=== PATIENT | female | born 1955 | race Caucasian/White ===

== ENCOUNTER 2020-01-15 19:12 | Inpatient (IN) | payer MEDICARE, SELFPAY ==
[2020-01-15 19:59] LABS: #Basophils 0.1 thou/uL (0.0-0.2); #Eosinphils 0.2 thou/uL (0.0-0.7); #Monocytes 0.4 thou/uL (0.11-0.59); #Neutrophils 4.7 thou/uL (1.40-6.50); %Basophils 0.7 % (0.0-1.0); %Lymphocytes 27.2 % (21.0-51.0); %Monocytes 5.4 % (0.0-10.0); %Neutrophils 63.7 % (42.0-75.0); Hemoglobin 12.7 g/dL (12.0-16.0); Mean Corpuscular HGB CONC 32.2 g/dL (32.0-36.0); Mean Corpuscular Hemoglobin 29.7 pg (27.0-31.0); Mean Corpuscular Volume 92.5 fL (78.0-98.0); Mean Platelet Volume 11.2 fL (7.4-10.4); Platelet Count 161 thou/uL (130-400); Red Blood Cell (RBC) Count 4.26 mill/uL (4.20-5.40); White Blood Cell (WBC) Count 7.4 thou/uL (4.8-10.8)
[2020-01-15] MEDS ORDERED: Nitroglycerin 0.4 MG TAB 1 EACH ONE (20:05)
[2020-01-15 20:23] LABS: ALT (SGPT) 27 U/L (8-55); AST (SGOT) 48 U/L (5-34); Albumin 3.8 g/dL (3.4-4.8); Alkaline Phosphatase 109 U/L (40-110); Anion Gap 15 mmol/L (10-20); BUN (Urea Nitrogen) 15 mg/dL (9.8-20.1); Bilirubin, Total 0.5 mg/dL (0.2-1.2); CK (CPK) 45 U/L (29-168); Calc. Creatinine Clearance 0 mL/min (70-130); Calcium 8.9 mg/dL (7.8-10.44); Carbon Dioxide 24 mmol/L (23-31); Chloride 104 mmol/L (98-107); Estimated GFR-MDRD 51; Globulin 4.2 g/dL (2.4-3.5); Glucose 103 mg/dL (80-115); Potassium 4.3 mmol/L (3.5-5.1); Sodium 139 mmol/L (136-145)
--- NOTE | 2020-01-15 20:24 | RAD ---
PORTABLE CHEST: 01/15/20 HISTORY: Chest pain. The lungs are clear. No infiltrate or vascular congestion. Heart size within normal range. IMPRESSION: No acute abnormality. POS: AGW
[2020-01-15] MEDS ORDERED: Senokot S 8.6-50 MG TAB PO PRN (22:21)
[2020-01-15] MEDS ORDERED: HYDROcodone/Acetaminophen 5/325 mg Tablet PO PRN (22:21)
[2020-01-15] MEDS ORDERED: Ondansetron ODT 4 MG TAB PO PRN (22:21)
[2020-01-15] MEDS ORDERED: Calcium Carbonate 500 MG ChewTAB PO PRN (22:21)
[2020-01-15 23:23] LABS: Troponin I 0.037 ng/mL (< 0.028)
--- NOTE | 2020-01-15 23:23 | HP ---
PRIMARY CARE PHYSICIAN: Velma Fields. CHIEF COMPLAINT: Chest pain. HISTORY OF PRESENT ILLNESS: The patient is a 64-year-old female with a past medical history significant for hypertension, asthma, and obesity, who presents to the ER for the above complaint. The patient reports that she has had chest pain for years. She reports that it is ongoing, it is constant; however, over the past couple of days, it has increased in intensity, so much though that she has been lying in bed, reluctant to exert herself because her chest pain worsens. This afternoon, while lying in bed, her chest pain became so severe that she went into the shower, hoping that would help relieve her pain, however, she became short of breath and diaphoretic. She describes her chest pain as located midsternally and does not radiate. She has some associated heart palpitations at times. She describes it as pressure increasing in intensity, exacerbated with exertion and relieved by nothing. For this reason, the patient called EMS. Denies any cough, fever, abdominal pain or diarrhea. In the ER, the patient's EKG, normal sinus rhythm 77 beats per minute with some T-wave flattening. Troponin was 0.026. BNP 15.3, CK 45, D-dimer 0.39. Chest x-ray was negative for any acute process. CMP and CBC were unremarkable. The patient was given full-dose aspirin and sublingual nitroglycerin. The patient reports improvement in symptoms; however, the chest pain still exists. PAST MEDICAL HISTORY: 1. Hypertension. 2. Asthma. 3. Fibromyalgia. 4. Arthritis. 5. Depression. 6. Migraines. PAST SURGICAL HISTORY: 1. Gallbladder. 2. Hernia. 3. Hysterectomy. 4. Eye surgery. SOCIAL HISTORY: The patient lives with her at home. She has no history of smoking, illicit drug use, or alcohol intake. She does not work. FAMILY HISTORY: Significant for cardiac disease. Her sister of an PA this month, contributory for pulmonary disease. ALLERGIES: TOPIRAMATE. HOME MEDICATIONS: 1. Hydrochlorothiazide 25 mg p.o. q.a.m. 2. Lamictal 100 mg p.o. b.i.d. 3. Cymbalta 60 mg p.o. q.a.m. 4. Lyrica 100 mg p.o. q.8 hours. 5. Celebrex 200 mg p.o. q.a.m. REVIEW OF SYSTEMS: All review of systems are negative unless otherwise stated in the HPI. PHYSICAL EXAMINATION: VITAL SIGNS: Blood pressure 120/82, pulse 79, respirations 22, 95% on room air, temperature 98.9. CONSTITUTIONAL: The patient is alert and oriented to person, place, and time. Appears comfortable, lying in bed, no acute distress. Nontoxic in appearance with stable vital signs. HEAD: Atraumatic and normocephalic. EYES: PERRLA. Extraocular muscles intact. ENT: Nares patent bilaterally. Oropharynx is clear. Uvula midline. Moist mucous membranes. No oral lesions. NECK: Full range of motion. No cervical spinous tenderness. No JVD. No cervical adenopathy. RESPIRATORY/CHEST: Respirations even, nonlabored. Clear to auscultation. No rhonchi, wheezes, or rales. CARDIOVASCULAR: S1 and S2 appreciated. Regular rate and rhythm. No murmurs, rubs, or gallops. ABDOMEN: Soft, nontender, nondistended. Active bowel sounds. No guarding. No rigidity. No rebound. Negative Rovsing sign. Negative Robertson sign. No abdominal bruit auscultated. BACK: Full range of motion. No central spinous tenderness. No CVA tenderness. EXTREMITIES: Upper extremities, full range of motion. Strength normal. Sensation intact. Palpable radial pulses. Bilateral lower extremities, full range of motion. Strength intact. Sensation intact. Palpable pedal pulses, no swelling. NEUROVASCULAR: The patient is alert and oriented to person, place, and time. Moves all extremities well. No focal motor deficits. Stable gait. PSYCHIATRIC: Normal affect. A and O x3. LABS AND DIAGNOSTICS: EKG normal sinus rhythm 77 beats per minute. Chest x-ray negative for any acute process. Troponin 0.026. BNP 15.3, CK 45. D-dimer 0.39. Sodium 139, potassium 4.3, chloride 104, carbon dioxide 24, BUN 15, creatinine 1.09, glucose 103, calcium 8.9, total bilirubin 0.5, AST 48, ALT is 27, alkaline phosphatase 109. WBC 7.4, hemoglobin 12.7, hematocrit 39.4, platelets 161. D- dimer 0.39. IMPRESSION AND PLAN: 1. Unstable angina. We will admit the patient to the telemetry floor observation status. Expected length of stay less than two midnights. The patient presents for worsening chest pain over the past several years. The patient has a HEART score of 5, Wells score of 0. D-dimer was 0.39. The patient was given aspirin, sublingual nitroglycerin with improvement of symptoms, but did not completely resolve her chest pain. We will continue to trend cardiac troponins. We will check a TSH and a fasting lipid and get a UA. We will order an echocardiogram. We will continue aspirin. We will leave the n.p.o. after midnight. Day team to consider cardiac stress test versus Cardiology consult versus outpatient followup. 2. Hypertension. The patient has a history of hypertension, takes hydrochlorothiazide. We will monitor blood pressure through the evening. We will hold hydrochlorothiazide for now. 3. Asthma. Chest x-ray negative for any acute process. The patient has regular respirations. No respiratory distress. We will continue to monitor her respiratory status, asthma is stable at this time. 4. Fibromyalgia. The patient takes Cymbalta and Lyrica. We will restart home medications when reconciled by nursing. 5. Arthritis. The patient takes Celebrex. We will restart home medication when reconciled by nursing. 6. Depression. The patient takes Lyrica and Cymbalta. We will restart home medications when reconciled by nursing. 7. SCDs for deep venous thrombosis prophylaxis. Protonix for gastrointestinal prophylaxis. The patient is a full code. 8. Discussed the case with Dr. Herrera. Job ID: [id number] MTDD
[2020-01-15] MEDS ORDERED: Sodium Chloride 0.9% 1,000 ML IV SCH (23:59)
[2020-01-16] MEDS ORDERED: Magnesium 2 GM/50 ML 2 GM in Premix Bag 1 BAG IVPB SCH (01:00)
[2020-01-16] MEDS ORDERED: Magnesium 2 GM/50 ML BAG (IN WATER) ONE (01:58)
[2020-01-16 02:14] LABS: Troponin I Less than 0.010 ng/mL (< 0.028)
[2020-01-16 06:04] LABS: #Basophils 0.1 thou/uL (0.0-0.2); #Eosinphils 0.2 thou/uL (0.0-0.7); #Lymphocytes 2.4 thou/uL (1.20-3.40); #Monocytes 0.5 thou/uL (0.11-0.59); #Neutrophils 3.5 thou/uL (1.40-6.50); %Basophils 1.2 % (0.0-1.0); %Eosinophils 3.4 % (0.0-10.0); %Lymphocytes 35.6 % (21.0-51.0); %Monocytes 7.1 % (0.0-10.0); %Neutrophils 52.7 % (42.0-75.0); Hemoglobin 12.4 g/dL (12.0-16.0); MDiff Complete? YES; Mean Corpuscular HGB CONC 31.5 g/dL (32.0-36.0); Mean Corpuscular Hemoglobin 29.7 pg (27.0-31.0); Mean Corpuscular Volume 94.3 fL (78.0-98.0); Mean Platelet Volume 10.5 fL (7.4-10.4); Platelet Clumps SLIGHT; Platelet Morphology Comment PLT clumps seen-ADEQ; RBC Distribution Width 13.1 % (11.5-14.5); Red Blood Cell (RBC) Count 4.16 mill/uL (4.20-5.40); White Blood Cell (WBC) Count 6.7 thou/uL (4.8-10.8)
[2020-01-16 06:10] LABS: Anion Gap 12 mmol/L (10-20); BUN (Urea Nitrogen) 17 mg/dL (9.8-20.1); Calc. Creatinine Clearance 0 mL/min (70-130); Calcium 8.7 mg/dL (7.8-10.44); Carbon Dioxide 25 mmol/L (23-31); Cardiac Risk 6.1 (Less than 4.5); Chloride 106 mmol/L (98-107); Cholesterol 208 mg/dl (< 200 Desired); Estimated GFR-MDRD 67; Glucose 97 mg/dL (80-115); HDL Cholesterol 34 mg/dL (>60 Neg Risk); LDL Cholesterol, Calculated 148 mg/dL; Potassium 3.7 mmol/L (3.5-5.1); Sodium 139 mmol/L (136-145); Triglycerides 132 mg/dL (Less than 150)
[2020-01-16] MEDS ORDERED: Pregabalin 50 MG CAP PO SCH (06:15)
[2020-01-16] MEDS ORDERED: Aspirin Chewable 81 MG TAB ONE (08:49)
[2020-01-16] MEDS ORDERED: Aspirin 81 mg Enteric Coated Tablet PO SCH (09:00)
[2020-01-16 13:58] VITALS: BMI 41.3
[2020-01-16 16:15] LABS: Bilirubin Negative (Negative); Blood, Urine Negative (Negative); Clarity Clear (Clear); Glucose, Urine (Dipstick) Normal (Negative); Ketone, Urine Negative (Negative); Leukocyte Negative Leu/uL (Negative); Nitrite Negative (Negative); Protein, Urine (Dipstick) Negative (Neg-Trace); RBC/HPF 0-3 HPF (0-3); Specific Gravity, Urine 1.017 (1.002-1.036); Urobilinogen Normal mg/dL (Less than 2); WBC/HPF 0-3 HPF (0-3)
[2020-01-16 16:16] LABS: Bacteria/HPF 1+ HPF (None Seen)
[2020-01-16] MEDS ORDERED: HYDROcodone/Acetaminophen 10/325 mg Tablet PO PRN (18:23)
[2020-01-16] MEDS ORDERED: Albuterol Sulfate 2.5 mg/3 ml Neb NEB PRN (18:23)
[2020-01-16] MEDS: Pregabalin 50 MG CAP PO SCH (18:36)
[2020-01-16] MEDS: Acetaminophen 325 MG TAB PO PRN (21:43)
[2020-01-16] MEDS: lamoTRIgine 100 MG TAB PO SCH (21:43)
[2020-01-17] MEDS ORDERED: Pregabalin 50 MG CAP PO SCH (00:01)
[2020-01-17] MEDS: DULoxetine 60 MG CAP PO SCH (08:26)
[2020-01-17] MEDS: Pregabalin 50 MG CAP PO SCH ×3 (08:27→19:59)
[2020-01-17] MEDS: Aspirin 325 mg Enteric Coated Tablet PO SCH (08:27)
[2020-01-17] MEDS: CeleCOXIB 100 MG CAP PO SCH (08:27)
[2020-01-17] MEDS: lamoTRIgine 100 MG TAB PO SCH ×2 (08:31→19:59)
[2020-01-17] MEDS ORDERED: Regadenoson 0.4 MG/5 ML SYRINGE ONE (09:39)
--- NOTE | 2020-01-17 12:05 | PDOC.HOSPP ---
- Subjective Encounter Date: 01/16/20 Encounter Time: 16:00 Subjective: Patient seen and examined for CP. Had CP earlier. No new complaints. No overnight events - Objective Vital Signs & Weight: Vital Signs (12 hours) Temp Pulse Resp BP Pulse Ox 01/17/20 07:23 97.5 F L 70 16 121/68 97 01/17/20 04:13 97.3 F L 75 18 120/56 L 97 Weight Weight 296 lb 12.8 oz I&O: 01/16/20 01/17/20 01/18/20 06:59 06:59 06:59 Intake Total 790 Output Total 650 Balance 140 Result Diagrams: 01/16/20 05:19 01/16/20 05:19 Additional Labs: Laboratory Tests 01/16/20 05:19 LDL Cholesterol, Calc 148 Radiology Reviewed by me: Yes (CXR - no infiltrate) EKG Reviewed by me: Yes (SR) Hospitalist ROS - Review of Systems Respiratory: denies: cough, dry, shortness of breath, hemoptysis, SOB with excertion, pleuritic pain, sputum, wheezing, other Cardiovascular: denies: chest pain, palpitations, orthopnea, paroxysmal noc. dyspnea, edema, light headedness, other - Medication Medications: Active Medications Generic Name Dose Route Start Last Admin Trade Name Freq PRN Reason Stop Dose Admin Acetaminophen 650 mg 01/15/20 22:21 01/16/20 21:43 Tylenol PO 650 mg Q4H PRN Administration Headache/Fever/Mild Pain (1-3) Aspirin 325 mg 01/17/20 09:00 01/17/20 08:27 Ecotrin PO 325 mg DAILY ALVARO Administration Celecoxib 200 mg 01/17/20 09:00 01/17/20 08:27 Celebrex PO 200 mg DAILY ALVARO Administration Duloxetine HCl 60 mg 01/17/20 09:00 01/17/20 08:26 Cymbalta PO 60 mg DAILY ALVARO Administration Lamotrigine 100 mg 01/16/20 21:00 01/17/20 08:31 Lamictal PO 100 mg BID ALVARO Administration Pantoprazole Sodium 40 mg 01/16/20 09:00 01/17/20 08:27 Protonix PO 40 mg DAILY ALVARO Administration Pregabalin 100 mg 01/16/20 21:00 01/17/20 08:27 Lyrica PO 100 mg TID ALVARO Administration Sodium Chloride 10 ml 01/16/20 09:00 01/17/20 08:28 Flush - Normal Saline IVF 10 ml Q12HR ALVARO Administration - Exam General Appearance: NAD Heart: RRR, no gallops, no rubs, normal peripheral pulses Respiratory: no wheezes, no rales, no ronchi, normal chest expansion Gastrointestinal: non-tender, non-distended, normal bowel sounds, no palpable masses Extremities: no cyanosis, no clubbing, no edema Neurological: no new deficit Psychiatric: normal affect, A&O x 3 Hosp A/P - Plan DVT proph w/SCDs Chest pain ?Unstable angina HTN Mild int Asthma Fibromyalgia Morbid obesity BMI 41.4 HLD PLAN: Await stress test Cont ASA Resume home meds Will prob consult Cardiology Echo pending Cont other meds as above
--- NOTE | 2020-01-17 12:20 | PDOC.HOSPP ---
- Subjective Encounter Date: 01/17/20 Encounter Time: 08:00 Subjective: Patient seen and examined for CP. No CP. No new complaints. No overnight events - Objective Vital Signs & Weight: Vital Signs (12 hours) Temp Pulse Resp BP Pulse Ox 01/17/20 11:48 97.7 F 85 16 131/71 97 01/17/20 07:23 97.5 F L 70 16 121/68 97 01/17/20 04:13 97.3 F L 75 18 120/56 L 97 Weight Weight 296 lb 12.8 oz I&O: 01/16/20 01/17/20 01/18/20 06:59 06:59 06:59 Intake Total 790 Output Total 650 Balance 140 Result Diagrams: 01/16/20 05:19 01/16/20 05:19 EKG Reviewed by me: Yes (Tele SR) Hospitalist ROS - Review of Systems Respiratory: denies: cough, dry, shortness of breath, hemoptysis, SOB with excertion, pleuritic pain, sputum, wheezing, other Cardiovascular: denies: chest pain, palpitations, orthopnea, paroxysmal noc. dyspnea, edema, light headedness, other Gastrointestinal: denies: nausea, vomiting, abdominal pain, diarrhea, constipation, melena, hematochezia, other - Medication Medications: Active Medications Generic Name Dose Route Start Last Admin Trade Name Freq PRN Reason Stop Dose Admin Acetaminophen 650 mg 01/15/20 22:21 01/16/20 21:43 Tylenol PO 650 mg Q4H PRN Administration Headache/Fever/Mild Pain (1-3) Aspirin 325 mg 01/17/20 09:00 01/17/20 08:27 Ecotrin PO 325 mg DAILY ALVARO Administration Celecoxib 200 mg 01/17/20 09:00 01/17/20 08:27 Celebrex PO 200 mg DAILY ALVARO Administration Duloxetine HCl 60 mg 01/17/20 09:00 01/17/20 08:26 Cymbalta PO 60 mg DAILY ALVARO Administration Lamotrigine 100 mg 01/16/20 21:00 01/17/20 08:31 Lamictal PO 100 mg BID ALVARO Administration Pantoprazole Sodium 40 mg 01/16/20 09:00 01/17/20 08:27 Protonix PO 40 mg DAILY ALVARO Administration Pregabalin 100 mg 01/16/20 21:00 01/17/20 08:27 Lyrica PO 100 mg TID ALVARO Administration Sodium Chloride 10 ml 01/16/20 09:00 01/17/20 08:28 Flush - Normal Saline IVF 10 ml Q12HR ALVARO Administration - Exam General Appearance: NAD Heart: RRR, no gallops Respiratory: no wheezes, no ronchi Gastrointestinal: non-tender, non-distended, normal bowel sounds Extremities: no cyanosis, no clubbing Neurological: no new deficit Hosp A/P - Plan DVT proph w/SCDs Chest pain ?Unstable angina HTN Mild int Asthma Fibromyalgia Morbid obesity BMI 41.4 HLD Chronic diastolic dysfunction PLAN: Stress test today Cont ASA Await Cardiology Echo reviewed Cont other meds as above
--- NOTE | 2020-01-17 15:19 | CON ---
DATE OF CONSULTATION: 01/17/2020 REASON FOR CONSULTATION: Chest pain. HISTORY OF PRESENT ILLNESS: Ms. Link is a very pleasant 64-year-old white female, who comes to the hospital for chest pain. She states she has had chest pain for many many years now. Recently, she has been dealing with a lot more anxiety and stress in her life as she lost her mother in June and has lost three other family members in the last 3 months. She has noticed worsening episodes of chest pain. She describes it as a pain that is in her midsternal area that lasts pretty much the whole day. On my evaluation, she said she is having a good day today and her pain is not there, but she had pain all day yesterday. She has had an evaluation of her heart in the past about 10 years ago. She states she was in the hospital for the same reason, she had a heart catheterization that was normal. She remembers being told she had probably a 30% blockage somewhere. She has continued to have chest pain since. PAST MEDICAL HISTORY: 1. Hypertension. 2. Bronchial asthma. 3. Fibromyalgia. 4. Arthritis. 5. Depression. 6. Migraines. SURGICAL HISTORY: 1. Cholecystectomy. 2. Hernia repair. 3. Hysterectomy. 4. Eye surgeries. SOCIAL HISTORY: Lives with her . She has grand kids and great grand kids. FAMILY HISTORY: Her sister of MS this month. OUTPATIENT MEDICATIONS: 1. Hydrochlorothiazide 25 mg a day. 2. Lamictal. 3. Cymbalta. 4. Lyrica. 5. Celebrex. ALLERGIES: TOPIRAMATE. REVIEW OF SYSTEMS: A 12-point review of systems was done and negative unless stated in history of present illness. PHYSICAL EXAMINATION: VITAL SIGNS: Temperature 97.7, pulse 85, respiratory rate 16, saturations 97% on room air, blood pressure 131/71. GENERAL: Awake, alert, and oriented x3, in no distress. HEENT: Normocephalic and atraumatic. NECK: Supple. LUNGS: Clear. CARDIOVASCULAR: S1 and S2. No S3 or S4. No murmurs. ABDOMEN: Soft. Positive bowel sounds. EXTREMITIES: No edema. SKIN: Warm and dry. LABORATORY DATA: Laboratory work was reviewed. CBC was unremarkable. Coags, D-dimer was normal. Chemistries were unremarkable. Troponin was 0.02, 0.03, 0.01. Triglycerides of 132, cholesterol of 208, LDL of 148, HDL of 34. TSH was normal. UA was unremarkable except for 1+ bacteria. Echocardiogram done yesterday showed an EF of 50% to 55%, grade 1 diastolic dysfunction, mild TR. ASSESSMENT: 1. Chest pain, atypical. 2. Fibromyalgia. 3. Hypertension. PLAN: We would further risk stratify with nuclear stress test. She would have to be a two day. At this time, we will have further recommendations per results of stress testing. If stress test is normal, I will discharge her home on isosorbide mononitrate, just in case this is some sort of coronary spasm. If it is abnormal, she will require heart catheterization, which we will address with her in the next few days. Thank you for letting us to participate in the care of the patient. We will follow. Job ID: [id number]
[2020-01-17] MEDS: Acetaminophen 325 MG TAB PO PRN (19:58)
[2020-01-18] MEDS: CeleCOXIB 100 MG CAP PO SCH (08:04)
[2020-01-18] MEDS: Pregabalin 50 MG CAP PO SCH ×3 (08:04→20:50)
[2020-01-18] MEDS: lamoTRIgine 100 MG TAB PO SCH ×2 (08:04→20:52)
[2020-01-18] MEDS: DULoxetine 60 MG CAP PO SCH (08:04)
[2020-01-18] MEDS: Aspirin 325 mg Enteric Coated Tablet PO SCH (08:05)
--- NOTE | 2020-01-18 11:53 | NM ---
EXAM: CARDIAC SPECT HISTORY: Chest pain, asthma, hypertension TECHNIQUE: A myocardial perfusion scan was performed using the single isotope 2 day protocol with sofya hnetium 99m sestamibi. [30 mCi] was injected intravenously for the rest exam followed by 30 mCi for the stress study. Pharmacologic stress with Lexiscan was monitored and interpreted by Dr. Contreras FINDINGS: A small defect is seen in the distal anterior wall on the stress images with complete rever sibility at rest. Gated SPECT LVEF: 69% Wall motion exam: Normal IMPRESSION: Small area of completely reversible distal anterior wall ischemia
--- NOTE | 2020-01-18 13:46 | PDOC.HOSPP ---
- Subjective Encounter Date: 01/18/20 Encounter Time: 13:45 Subjective: Patient seen and examined for CP/Unstable angina. Intermittent chest tightness. No syncope/palpitations. No other complaints. No overnight events - Objective Vital Signs & Weight: Vital Signs (12 hours) Temp Pulse Resp BP Pulse Ox 01/18/20 11:03 98.0 F 70 12 113/61 97 01/18/20 07:25 97.9 F 67 18 109/56 L 94 L 01/18/20 03:38 98.3 F 71 126/59 L 93 L Weight Admit Weight 296 lb 12.8 oz Weight 299 lb I&O: 01/17/20 01/18/20 01/19/20 06:59 06:59 06:59 Intake Total 790 1370 Output Total 650 Balance 140 1370 Result Diagrams: 01/16/20 05:19 01/16/20 05:19 Radiology Reviewed by me: No (Echo - Diastolic dysfunction) EKG Reviewed by me: Yes (Tele SR) Hospitalist ROS - Review of Systems Respiratory: denies: cough, dry, shortness of breath, hemoptysis, SOB with excertion, pleuritic pain, sputum, wheezing, other Cardiovascular: reports: chest pain. denies: palpitations, orthopnea, paroxysmal noc. dyspnea, edema, light headedness, other Gastrointestinal: denies: nausea, vomiting, abdominal pain, diarrhea, constipation, melena, hematochezia, other - Medication Medications: Active Medications Generic Name Dose Route Start Last Admin Trade Name Freq PRN Reason Stop Dose Admin Acetaminophen 650 mg 01/15/20 22:21 01/17/20 19:58 Tylenol PO 650 mg Q4H PRN Administration Headache/Fever/Mild Pain (1-3) Aspirin 325 mg 01/17/20 09:00 01/18/20 08:05 Ecotrin PO 325 mg DAILY ALVARO Administration Celecoxib 200 mg 01/17/20 09:00 01/18/20 08:04 Celebrex PO 200 mg DAILY ALVARO Administration Duloxetine HCl 60 mg 01/17/20 09:00 01/18/20 08:04 Cymbalta PO 60 mg DAILY ALVARO Administration Lamotrigine 100 mg 01/16/20 21:00 01/18/20 08:04 Lamictal PO 100 mg BID ALVARO Administration Pantoprazole Sodium 40 mg 01/16/20 09:00 01/18/20 08:04 Protonix PO 40 mg DAILY ALVARO Administration Pregabalin 100 mg 01/16/20 21:00 01/18/20 08:04 Lyrica PO 100 mg TID ALVARO Administration Sodium Chloride 10 ml 01/16/20 09:00 01/18/20 08:05 Flush - Normal Saline IVF 10 ml Q12HR ALVARO Administration - Exam General Appearance: NAD Heart: RRR, no gallops, no rubs, normal peripheral pulses Respiratory: no wheezes, no ronchi, normal chest expansion, no tachypnea Gastrointestinal: non-tender, non-distended, normal bowel sounds Extremities: no cyanosis Neurological: no new deficit Psychiatric: normal affect, A&O x 3 Hosp A/P - Plan DVT proph w/lovenox, DVT proph w/SCDs Chest pain/ Unstable angina/?NSTEMI Abnormal stress test HTN Mild int Asthma Fibromyalgia Morbid obesity BMI 41.4 HLD Chronic diastolic dysfunction PLAN: Case d/w Dr Contreras Cont ASA Cont Statins Start Lovenox 100 mg BID Hold beta blockers and ACEI due to relative hypotension Echo reviewed Cont other meds as above Cath on Tuesday per Cardiology
[2020-01-18] MEDS: Acetaminophen 325 MG TAB PO PRN (14:15)
[2020-01-18] MEDS: Nitroglycerin 2% Ointment 1 INCH/1 GM Packet TOP SCH ×2 (14:16→20:54)
--- NOTE | 2020-01-18 14:57 | PDOC.CPN ---
- Subjective Date: 01/18/20 Time: 14:53 Interval history: She had hr stress test and it showed low risk findings with small apical defect. She continues to have episodes of chest pain. - Review of Systems General: denies: fever/chills, weight/appetite/sleep changes, night sweats, fatigue Respiratory: denies: cough, congestion, shortness of breath, exercise intolerance Cardiovascular: reports: chest pain. denies: palpitation, edema, paroxysmal nocturnal dyspnea, orthopnea Gastrointestinal: denies: nausea, vomiting, diarrhea, constipation, abd pain, GI bleeding Musculoskeletal: reports: pain. denies: tenderness, stiffness, swelling, arthritis/arthralgias Neurological: denies: numbness, syncope, seizure, weakness - Objective Allergies/Adverse Reactions: Allergies Allergy/AdvReac Type Severity Reaction Status Date / Time topiramate Allergy Verified 01/16/20 13:54 Visit Medications: Current Medications Acetaminophen (Tylenol) 650 mg PO Q4H PRN PRN Reason: Headache/Fever/Mild Pain (1-3) Last Admin: 01/18/20 14:15 Dose: 650 mg Hydrocodone Bitart/Acetaminophen (Boles 5/325) 1 tab PO Q4H PRN PRN Reason: Moderate Pain (4-6) Hydrocodone Bitart/Acetaminophen (Boles 10/325) 1 tab PO Q6H PRN PRN Reason: Pain 7-10 Albuterol Sulfate (Ventolin) 2.5 mg NEB Q6H PRN PRN Reason: SOB &/or Wheezing Aspirin (Ecotrin) 325 mg PO DAILY [facility] Last Admin: 01/18/20 08:05 Dose: 325 mg Atorvastatin Calcium (Lipitor) 40 mg PO HS [facility] Calcium Carbonate (Tums) 1,000 mg PO Q4H PRN PRN Reason: Heartburn or Indigestion Celecoxib (Celebrex) 200 mg PO DAILY [facility] Last Admin: 01/18/20 08:04 Dose: 200 mg Duloxetine HCl (Cymbalta) 60 mg PO DAILY [facility] Last Admin: 01/18/20 08:04 Dose: 60 mg Enoxaparin Sodium (Lovenox) 100 mg SC 0900,2100 [facility] Lamotrigine (Lamictal) 100 mg PO BID [facility] Last Admin: 01/18/20 08:04 Dose: 100 mg Nitroglycerin (Nitrostat) 0.4 mg PO Q5MIN PRN PRN Reason: Chest Pain Nitroglycerin (Nitro-Bid 2% Ointment) 0.5 inch TOP Q8HR [facility] Last Admin: 01/18/20 14:16 Dose: 0.5 inch Ondansetron HCl (Zofran Odt) 4 mg PO Q6H PRN PRN Reason: Nausea/Vomiting Pantoprazole Sodium (Protonix) 40 mg PO DAILY [facility] Last Admin: 01/18/20 08:04 Dose: 40 mg Pregabalin (Lyrica) 100 mg PO TID [facility] Last Admin: 01/18/20 14:16 Dose: 100 mg Senna/Docusate Sodium (Senokot S) 2 tab PO BID PRN PRN Reason: Constipation Sodium Chloride (Flush - Normal Saline) 10 ml IVF Q12HR [facility] Last Admin: 01/18/20 08:05 Dose: 10 ml Vital Signs & Weight: Vital Signs Temp Pulse Resp BP Pulse Ox 01/18/20 11:03 98.0 F 70 12 113/61 97 01/18/20 07:25 97.9 F 67 18 109/56 L 94 L 01/18/20 03:38 98.3 F 71 126/59 L 93 L Admit Weight 296 lb 12.8 oz Weight 299 lb - Physical Exam General: alert & oriented x3 HEENT: mucus membranes moist Neck: supple neck Cardiac: regular rate and rhythm Lungs: clear to auscultation Neuro: grossly intact Abdomen: active bowel sounds Extremities: no edema Skin: clear Musculoskeletal: no pain - Labs Result Diagrams: 01/16/20 05:19 01/16/20 05:19 Troponin/CKMB Troponin I Less than 0.010 ng/mL (< 0.028) 01/16/20 01:30 - Telemetry Sinus rhythms and dysrhythmias: sinus rhythm - Assessment/Plan Assessment/Plan: 1. NSTEMI 2. Morbid obesity. 3. HTN PLAN: - Start full anticoagulation with lovenox - We spoke about risks and benefits of LHC, risks include but not limited to stroke, [place], bleeding and need for blood transfusion, limp loss, organ loss, renal dysfunction, She understands and verbalizes understanding and agrees to proceed. - Will plan to do Tuesday through radial approach.
[2020-01-18] MEDS: Atorvastatin Calcium 40 MG TAB PO SCH (20:51)
[2020-01-18] MEDS: Enoxaparin Sodium 100 MG/ML SYRINGE SC SCH (20:58)
[2020-01-19] MEDS: Nitroglycerin 2% Ointment 1 INCH/1 GM Packet TOP SCH ×4 (06:42→22:36)
[2020-01-19 08:23] LABS: Anion Gap 11 mmol/L (10-20); BUN (Urea Nitrogen) 10 mg/dL (9.8-20.1); Calc. Creatinine Clearance 134 mL/min (70-130); Calcium 8.5 mg/dL (7.8-10.44); Carbon Dioxide 25 mmol/L (23-31); Chloride 106 mmol/L (98-107); Estimated GFR-MDRD 61; Glucose 102 mg/dL (80-115); Magnesium 1.9 mg/dL (1.6-2.6); Potassium 3.5 mmol/L (3.5-5.1); Sodium 138 mmol/L (136-145)
[2020-01-19 08:59] LABS: #Eosinphils 0.3 thou/uL (0.0-0.7); #Lymphocytes 2.3 thou/uL (1.20-3.40); #Monocytes 0.3 thou/uL (0.11-0.59); #Neutrophils 3.3 thou/uL (1.40-6.50); %Basophils 0.5 % (0.0-1.0); %Eosinophils 5.3 % (0.0-10.0); %Lymphocytes 36.4 % (21.0-51.0); %Monocytes 5.4 % (0.0-10.0); %Neutrophils 52.4 % (42.0-75.0); Hemoglobin 12.1 g/dL (12.0-16.0); MDiff Complete? YES; Mean Corpuscular HGB CONC 32.8 g/dL (32.0-36.0); Mean Corpuscular Hemoglobin 30.8 pg (27.0-31.0); Mean Corpuscular Volume 93.9 fL (78.0-98.0); Mean Platelet Volume 11.7 fL (7.4-10.4); Platelet Clumps MODERATE; Platelet Morphology Comment Appears Adequate; Red Blood Cell (RBC) Count 3.93 mill/uL (4.20-5.40); White Blood Cell (WBC) Count 6.3 thou/uL (4.8-10.8)
[2020-01-19] MEDS: CeleCOXIB 100 MG CAP PO SCH (09:20)
[2020-01-19] MEDS: DULoxetine 60 MG CAP PO SCH (09:20)
[2020-01-19] MEDS: Pregabalin 50 MG CAP PO SCH ×3 (09:20→21:50)
[2020-01-19] MEDS: Aspirin 325 mg Enteric Coated Tablet PO SCH (09:20)
[2020-01-19] MEDS: Enoxaparin Sodium 100 MG/ML SYRINGE SC SCH ×2 (09:21→21:51)
[2020-01-19] MEDS: lamoTRIgine 100 MG TAB PO SCH ×2 (09:21→21:53)
[2020-01-19] MEDS: Potassium Chloride 10 MEQ TAB PO SCH ×2 (11:41→17:51)
[2020-01-19] MEDS: Nitroglycerin 0.4 MG TAB (25 Tab Bottle) PO PRN ×2 (14:34→14:37)
[2020-01-19] MEDS: Atorvastatin Calcium 40 MG TAB PO SCH (21:54)
[2020-01-20 04:34] LABS: Anion Gap 11 mmol/L (10-20); BUN (Urea Nitrogen) 11 mg/dL (9.8-20.1); Calc. Creatinine Clearance 142 mL/min (70-130); Calcium 8.5 mg/dL (7.8-10.44); Carbon Dioxide 26 mmol/L (23-31); Chloride 106 mmol/L (98-107); Estimated GFR-MDRD 65; Glucose 94 mg/dL (80-115); Potassium 4.1 mmol/L (3.5-5.1); Sodium 139 mmol/L (136-145)
[2020-01-20 06:00] LABS: #Basophils 0.1 thou/uL (0.0-0.2); #Eosinphils 0.3 thou/uL (0.0-0.7); #Lymphocytes 1.4 thou/uL (1.20-3.40); #Monocytes 0.5 thou/uL (0.11-0.59); #Neutrophils 4.3 thou/uL (1.40-6.50); %Basophils 1.1 % (0.0-1.0); %Eosinophils 4.4 % (0.0-10.0); %Monocytes 7.1 % (0.0-10.0); %Neutrophils 66.3 % (42.0-75.0); Hemoglobin 11.7 g/dL (12.0-16.0); MDiff Complete? YES; Mean Corpuscular HGB CONC 33.8 g/dL (32.0-36.0); Mean Corpuscular Hemoglobin 31.8 pg (27.0-31.0); Mean Corpuscular Volume 94.3 fL (78.0-98.0); Mean Platelet Volume 10.3 fL (7.4-10.4); Platelet Clumps MODERATE; Platelet Morphology Comment PLT clumps seen-ADEQ; RBC Distribution Width 13.1 % (11.5-14.5); Red Blood Cell (RBC) Count 3.67 mill/uL (4.20-5.40); White Blood Cell (WBC) Count 6.5 thou/uL (4.8-10.8)
[2020-01-20] MEDS ORDERED: CeleCOXIB 100 MG CAP PO PRN (06:06)
[2020-01-20] MEDS: Nitroglycerin 2% Ointment 1 INCH/1 GM Packet TOP SCH ×3 (06:16→22:28)
[2020-01-20] MEDS: Pregabalin 50 MG CAP PO SCH ×3 (08:41→22:17)
[2020-01-20] MEDS: lamoTRIgine 100 MG TAB PO SCH ×2 (08:42→22:18)
[2020-01-20] MEDS: Potassium Chloride 10 MEQ TAB PO SCH (08:42)
[2020-01-20] MEDS: Aspirin 325 mg Enteric Coated Tablet PO SCH (08:44)
[2020-01-20] MEDS: Enoxaparin Sodium 100 MG/ML SYRINGE SC SCH ×2 (08:45→22:18)
[2020-01-20] MEDS: DULoxetine 60 MG CAP PO SCH (08:45)
[2020-01-20] MEDS: Senokot S 8.6-50 MG TAB PO SCH ×2 (08:46→22:17)
--- NOTE | 2020-01-20 09:35 | PDOC.HOSPP ---
- Subjective Encounter Date: 01/19/20 Encounter Time: 17:00 Subjective: Patient seen and examined for [place]/?NSTEMI. Had CP radiating to jaw and Left arm earlier that resolved after 2 SL NTG. No other complaints. No overnight events - Objective Vital Signs & Weight: Vital Signs (12 hours) Temp Pulse Resp BP Pulse Ox 01/20/20 08:00 98.3 F 85 18 127/61 94 L 01/20/20 03:52 98.1 F 80 16 93/50 L 92 L Weight Admit Weight 296 lb 12.8 oz Weight 300 lb I&O: 01/19/20 01/20/20 01/21/20 06:59 06:59 06:59 Intake Total 1680 2130 240 Balance 1680 2130 240 Result Diagrams: 01/20/20 03:44 01/20/20 03:44 EKG Reviewed by me: Yes (Tele SR) Hospitalist ROS - Review of Systems Respiratory: denies: cough, dry, shortness of breath, hemoptysis, SOB with excertion, pleuritic pain, sputum, wheezing, other Cardiovascular: reports: chest pain. denies: palpitations, orthopnea, paroxysmal noc. dyspnea, edema, light headedness, other Gastrointestinal: denies: nausea, vomiting, abdominal pain, diarrhea, constipation, melena, hematochezia, other - Medication Medications: Active Medications Generic Name Dose Route Start Last Admin Trade Name Freq PRN Reason Stop Dose Admin Acetaminophen 650 mg 01/15/20 22:21 01/18/20 14:15 Tylenol PO 650 mg Q4H PRN Administration Headache/Fever/Mild Pain (1-3) Hydrocodone Bitart/Acetaminophen 1 tab 01/16/20 18:23 01/18/20 20:50 [place] 10/325 PO 1 tab Q6H PRN Administration Pain 7-10 Aspirin 325 mg 01/17/20 09:00 01/20/20 08:44 Ecotrin PO 325 mg DAILY ALVARO Administration Atorvastatin Calcium 40 mg 01/18/20 21:00 01/19/20 21:54 Lipitor PO 40 mg HS ALVARO Administration Duloxetine HCl 60 mg 01/17/20 09:00 01/20/20 08:45 Cymbalta PO 60 mg DAILY ALVARO Administration Enoxaparin Sodium 100 mg 01/18/20 21:00 01/20/20 08:45 Lovenox SC 100 mg 0900,2100 ALVARO Administration Lamotrigine 100 mg 01/16/20 21:00 01/20/20 08:42 Lamictal PO 100 mg BID ALVARO Administration Nitroglycerin 0.4 mg 01/15/20 22:18 01/19/20 14:37 Nitrostat PO 1 tab Q5MIN PRN Administration Chest Pain Nitroglycerin 0.5 inch 01/18/20 14:00 01/20/20 06:16 Nitro-Bid 2% Ointment TOP Not Given Q8HR ALVARO Pantoprazole Sodium 40 mg 01/16/20 09:00 01/20/20 08:45 Protonix PO 40 mg DAILY ALVARO Administration Potassium Chloride 10 meq 01/20/20 08:00 01/20/20 08:42 Klor-Con 10 PO 10 meq QAM-WM ALVARO Administration Pregabalin 100 mg 01/16/20 21:00 01/20/20 08:41 Lyrica PO 100 mg TID ALVARO Administration Senna/Docusate Sodium 2 tab 01/20/20 09:00 01/20/20 08:46 Senokot S PO 2 tab BID ALVARO Administration Sodium Chloride 10 ml 01/16/20 09:00 01/20/20 08:47 Flush - Normal Saline IVF 10 ml Q12HR ALVARO Administration - Exam General Appearance: NAD Heart: RRR, no gallops Respiratory: no wheezes, no ronchi Gastrointestinal: soft, non-tender, normal bowel sounds Extremities: no cyanosis, no clubbing Hosp A/P - Plan DVT proph w/lovenox Chest pain/ Unstable angina/?NSTEMI Abnormal stress test HTN Mild int Asthma Fibromyalgia Morbid obesity BMI 41.4 HLD Chronic diastolic dysfunction Constipation PLAN: Cont ASA/Statins/Lovenox Beta blockers and ACEI on hold due to relative hypotension Cont other meds as above Cath on Tuesday per Cardiology
--- NOTE | 2020-01-20 09:40 | PDOC.HOSPP ---
- Subjective Encounter Date: 01/20/20 Encounter Time: 08:45 Subjective: Patient seen and examined for NSTEMI. No new CP. No new complaints. No overnight events - Objective Vital Signs & Weight: Vital Signs (12 hours) Temp Pulse Resp BP Pulse Ox 01/20/20 08:00 98.3 F 85 18 127/61 94 L 01/20/20 03:52 98.1 F 80 16 93/50 L 92 L Weight Admit Weight 296 lb 12.8 oz Weight 300 lb I&O: 01/19/20 01/20/20 01/21/20 06:59 06:59 06:59 Intake Total 1680 2130 240 Balance 1680 2130 240 Result Diagrams: 01/20/20 03:44 01/20/20 03:44 EKG Reviewed by me: Yes (Tele SR) Hospitalist ROS - Review of Systems Respiratory: denies: cough, dry, shortness of breath, hemoptysis, SOB with excertion, pleuritic pain, sputum, wheezing, other Cardiovascular: denies: chest pain, palpitations, orthopnea, paroxysmal noc. dyspnea, edema, light headedness, other Gastrointestinal: denies: nausea, vomiting, abdominal pain, diarrhea, constipation, melena, hematochezia, other - Medication Medications: Active Medications Generic Name Dose Route Start Last Admin Trade Name Freq PRN Reason Stop Dose Admin Acetaminophen 650 mg 01/15/20 22:21 01/18/20 14:15 Tylenol PO 650 mg Q4H PRN Administration Headache/Fever/Mild Pain (1-3) Hydrocodone Bitart/Acetaminophen 1 tab 01/16/20 18:23 01/18/20 20:50 [place] 10/325 PO 1 tab Q6H PRN Administration Pain 7-10 Aspirin 325 mg 01/17/20 09:00 01/20/20 08:44 Ecotrin PO 325 mg DAILY ALVARO Administration Atorvastatin Calcium 40 mg 01/18/20 21:00 01/19/20 21:54 Lipitor PO 40 mg HS ALVARO Administration Duloxetine HCl 60 mg 01/17/20 09:00 01/20/20 08:45 Cymbalta PO 60 mg DAILY ALVARO Administration Enoxaparin Sodium 100 mg 01/18/20 21:00 01/20/20 08:45 Lovenox SC 100 mg 0900,2100 ALVARO Administration Lamotrigine 100 mg 01/16/20 21:00 01/20/20 08:42 Lamictal PO 100 mg BID ALVARO Administration Nitroglycerin 0.4 mg 01/15/20 22:18 01/19/20 14:37 Nitrostat PO 1 tab Q5MIN PRN Administration Chest Pain Nitroglycerin 0.5 inch 01/18/20 14:00 01/20/20 06:16 Nitro-Bid 2% Ointment TOP Not Given Q8HR [facility] Pantoprazole Sodium 40 mg 01/16/20 09:00 01/20/20 08:45 Protonix PO 40 mg DAILY ALVARO Administration Potassium Chloride 10 meq 01/20/20 08:00 01/20/20 08:42 Klor-Con 10 PO 10 meq QAM-WM ALVARO Administration Pregabalin 100 mg 01/16/20 21:00 01/20/20 08:41 Lyrica PO 100 mg TID ALVARO Administration Senna/Docusate Sodium 2 tab 01/20/20 09:00 01/20/20 08:46 Senokot S PO 2 tab BID ALVARO Administration Sodium Chloride 10 ml 01/16/20 09:00 01/20/20 08:47 Flush - Normal Saline IVF 10 ml Q12HR ALVARO Administration - Exam General Appearance: NAD Heart: RRR, no gallops Respiratory: no wheezes, no ronchi Gastrointestinal: non-tender, normal bowel sounds Extremities: no cyanosis Neurological: no new deficit Hosp A/P - Plan DVT proph w/lovenox, DVT proph w/SCDs Chest pain/ Unstable angina/?NSTEMI/Abnormal stress test -Cath in AM HTN -HCTZ on hold Mild int Asthma Fibromyalgia Morbid obesity BMI 41.4 HLD -on Lipitor Chronic diastolic dysfunction Constipation Chronic pain syndrome PLAN: Cont ASA/Statins/Lovenox DC Lovenox after PM dose Beta blockers and ACEI on hold due to relative hypotension Cont other meds as above Cath in AM
[2020-01-20] MEDS: Atorvastatin Calcium 40 MG TAB PO SCH (22:18)
[2020-01-21] MEDS ORDERED: Sodium Chloride 0.9% 500 ML IV ONE (00:01)
[2020-01-21] MEDS ORDERED: Diazepam 5 MG TAB PO SCH (01:00)
[2020-01-21 05:02] VITALS: TEMP 98.1
[2020-01-21 05:26] LABS: Anion Gap 11 mmol/L (10-20); BUN (Urea Nitrogen) 11 mg/dL (9.8-20.1); Calc. Creatinine Clearance 136 mL/min (70-130); Calcium 8.6 mg/dL (7.8-10.44); Carbon Dioxide 28 mmol/L (23-31); Chloride 104 mmol/L (98-107); Estimated GFR-MDRD 62; Glucose 85 mg/dL (80-115); Potassium 3.8 mmol/L (3.5-5.1); Sodium 139 mmol/L (136-145)
[2020-01-21] MEDS: Nitroglycerin 2% Ointment 1 INCH/1 GM Packet TOP SCH (06:22)
[2020-01-21] MEDS: Pregabalin 50 MG CAP PO SCH ×2 (06:22→14:38)
[2020-01-21] MEDS: DULoxetine 60 MG CAP PO SCH (06:23)
[2020-01-21] MEDS: Aspirin 325 mg Enteric Coated Tablet PO SCH (06:24)
[2020-01-21] MEDS: lamoTRIgine 100 MG TAB PO SCH (06:24)
[2020-01-21] MEDS: Senokot S 8.6-50 MG TAB PO SCH (06:24)
[2020-01-21 06:55] LABS: #Eosinphils 0.2 thou/uL (0.0-0.7); #Lymphocytes 1.7 thou/uL (1.20-3.40); #Monocytes 0.5 thou/uL (0.11-0.59); #Neutrophils 2.9 thou/uL (1.40-6.50); %Basophils 0.2 % (0.0-1.0); %Eosinophils 2.9 % (0.0-10.0); %Monocytes 9.1 % (0.0-10.0); %Neutrophils 55.9 % (42.0-75.0); Eosinophils 1 % (0-10); Hemoglobin 10.9 g/dL (12.0-16.0); Lymphocytes 28 % (21-51); MDiff Complete? YES; Mean Corpuscular HGB CONC 31.2 g/dL (32.0-36.0); Mean Corpuscular Hemoglobin 29.6 pg (27.0-31.0); Mean Corpuscular Volume 94.8 fL (78.0-98.0); Mean Platelet Volume 10.7 fL (7.4-10.4); Monocytes 7 % (0-10); Neutrophil 64 % (42-75); Platelet Count 177 thou/uL (130-400); RBC Distribution Width 13.3 % (11.5-14.5); Red Blood Cell (RBC) Count 3.68 mill/uL (4.20-5.40); White Blood Cell (WBC) Count 5.3 thou/uL (4.8-10.8)
[2020-01-21] MEDS ORDERED: Nitroglycerin 100MG/250ML BOT 250 ML ONE (08:00)
[2020-01-21] MEDS ORDERED: Heparin 10,000 UNITS/1 ML VIAL ONE (08:00)
[2020-01-21] MEDS ORDERED: Verapamil 5 MG/2 ML VIAL ONE (08:00)
[2020-01-21] MEDS ORDERED: Midazolam HCl 2 mg/2 ml Vial ONE (08:08)
[2020-01-21] MEDS ORDERED: Fentanyl 100 MCG/2 ML VIAL ONE (08:08)
[2020-01-21] MEDS ORDERED: Acetaminophen/Codeine 30-300mg Tablet PO PRN (08:37)
[2020-01-21] MEDS ORDERED: Sodium Chloride 0.9% 200 ML IV PRN (08:37)
[2020-01-21] MEDS ORDERED: Sodium Chloride 0.9% 500 ML IV SCH (08:45)
[2020-01-21] MEDS: Potassium Chloride 10 MEQ TAB PO SCH (09:34)
[2020-01-21] MEDS ORDERED: Loperamide HCl 2 MG CAP PO PRN (13:58)
[2020-01-21 20:08] VITALS: BP 117/57
--- NOTE | 2020-01-22 06:13 | DIS ---
DATE OF ADMISSION: 01/15/2020 DATE OF DISCHARGE: 01/21/2020 DISCHARGE DISPOSITION: Home. FOLLOWUP: Follow up with primary care physician in 1 week. The patient was seen and examined on the day of discharge. Denies any new complaints. BRIEF HOSPITAL COURSE: The patient is a 64-year-old female with hypertension, asthma, and morbid obesity, presented to the hospital with chest discomfort. The chest discomfort was substernal, aggravated by stress and exertion. The chest discomfort improved with aspirin and sublingual nitroglycerin in the emergency room. Please refer to the history and physical for further details. The patient was admitted to the hospital with a diagnosis of chest discomfort consistent with unstable angina. She was found to have elevated troponin of 0.037. The patient underwent a Cardiolite stress test that showed reversible ischemia in the distal anterior wall. Echocardiogram showed ejection fraction of 50% to 55% with diastolic dysfunction and mild tricuspid regurgitation. Due to abnormal stress test, the patient was evaluated by Cardiology, Dr. Contreras. She was placed on Lovenox along with full-dose aspirin and statins. Today, she underwent a cardiac catheterization that showed mild coronary artery disease with normal left ventricular function. There was a 40% lesion in the mid-LAD. Left main, left circumflex, and RCA were normal. The patient will be discharged later today once cleared by Cardiology. FINAL DIAGNOSES: 1. Chest discomfort consistent with unstable angina/[id number] myocardial infarction. 2. Abnormal stress test. 3. Coronary artery disease as discussed above. 4. Hypertension. 5. Mild intermittent asthma. 6. Fibromyalgia. 7. Morbid obesity with a BMI of 41.4. 8. Hyperlipidemia. 9. Chronic diastolic dysfunction. 10. Constipation. 11. Chronic pain syndrome. 12. The patient understands the above plan of care. Job ID: [id number]
== END 2020-01-21 17:04 | disposition home or self-care (01) | DRG 281 ==
LOC: ERS 19:12 → OBSVTOIN 21:43 → ERHOLD 21:43 → 2NO 01-16 13:58
PROVIDERS: ADMIT Internal Medicine; ATTEND Internal Medicine
PROC: 4A023N7 Measurement of Cardiac Sampling and Pressure, Left Heart, Percutaneous Approach (ICD-10-PCS; principal; 2020-01-21)
PROC: B2111ZZ Fluoroscopy of Multiple Coronary Arteries using Low Osmolar Contrast (ICD-10-PCS; 2020-01-21)
DX: I21.4 Non-ST elevation (NSTEMI) myocardial infarction (principal); Z68.41 Body mass index [BMI] 40.0-44.9, adult; I10 Essential (primary) hypertension; M79.7 Fibromyalgia; M19.90 Unspecified osteoarthritis, unspecified site; F32.9 Major depressive disorder, single episode, unspecified; G43.909 Migraine, unspecified, not intractable, without status migrainosus; E66.01 Morbid (severe) obesity due to excess calories; E78.5 Hyperlipidemia, unspecified; G89.4 Chronic pain syndrome; I51.89 Other ill-defined heart diseases; J45.20 Mild intermittent asthma, uncomplicated; I95.9 Hypotension, unspecified; K59.00 Constipation, unspecified; Z90.710 Acquired absence of both cervix and uterus; Z88.8 Allergy status to other drugs, medicaments and biological substances; Z90.49 Acquired absence of other specified parts of digestive tract
CPT/HCPCS: 36415; 71045; 76942; 78452; 80048; 80053; 80061; 81001; 82550; 83735; 83880; 84443; 84484; 85025; 85379; 93005; 93017; 93306; 93458; 93798; 94760; 96374; 97139; 99152; A9500; G0378; J1644; J1650; J2250; J2785; J3010; J3475